=== PATIENT | female | born 1995 | race African-American/Black ===

== ENCOUNTER 2022-02-13 12:47 | Emergency (ER) | payer OTHER ==
[~2022-02-13] VITALS: Ht 162.6 cm; Wt 77.1 kg
[2022-02-13 12:50] VITALS: BP 151/75
--- NOTE | 2022-02-13 13:00 | NUR ---
PT AMB TO [facility]
[2022-02-13] MEDS ORDERED: FAMOTIDINE 20 MG TAB PO ONE (13:05)
[2022-02-13] MEDS ORDERED: EPIN1KIT31 IM (13:56)
--- NOTE | 2022-02-13 14:23 | NUR ---
NO NURSING INTERVENTIONS DONE NO COMPLETE NEEDED.
[2022-02-13 14:24] VITALS: BP 136/70
--- NOTE | 2022-02-13 14:24 | NUR ---
Patient discharged with v/s stable. Written and verbal after care instructions given FOR ANAPHYLACTIC REACTION and explained. Patient alert, oriented and verbalized understanding of instructions. Ambulatory with steady gait. All questions addressed prior to discharge. ID band removed. Patient advised to follow up with PMD. Rx of EPI PEN given. Patient educated on indication of medication including possible reaction and side effects. Opportunity to ask questions provided and answered.
== END 2022-02-13 14:32 | disposition home or self-care (01) ==
LOC: MED 12:47
DX: T78.1XXA Other adverse food reactions, not elsewhere classified, initial encounter (principal); Z79.899 Other long term (current) drug therapy
CPT/HCPCS: 99284; Q0163